=== PATIENT | female | born 1975 | race Caucasian/White ===

== ENCOUNTER → 2020-02-08 | Outpatient (CLI) | payer OTHER | LOC: ZCOL.LAB 15:27 | DX: R50.9 Fever, unspecified (principal); Z20.828 Contact with and (suspected) exposure to other viral communicable diseases ==

== ENCOUNTER → 2022-09-07 | Outpatient (CLI) | payer SELFPAY | LOC: WSPT 14:53 | DX: M25.511 Pain in right shoulder (principal) ==